=== PATIENT | female | born 1990 | race Caucasian/White ===

== ENCOUNTER 2016-06-19 19:36 | Emergency (ER) | payer OTHER ==
[2016-06-19 19:55] VITALS: BP 135/80
[2016-06-19] MEDS ORDERED: ONDANSETRON HCL/PF 2 MG/ML VIAL ONE (20:09)
[2016-06-19] MEDS ORDERED: ONDANSETRON HCL/PF 2 MG/ML VIAL IV ONE (20:15)
[2016-06-19] MEDS ORDERED: NORMAL SALINE 1,000 ML IV ONE (20:15)
--- NOTE | 2016-06-19 20:39 | ERNOTE ---
Headache ER HPI - General Presenting Symptoms: headache Time Seen by Provider: 06/19/16 20:39 Source: patient Exam Limitations: no limitations - Immun/Allergies/Home Medications Immunizations: IMMUNIZATION HX Immunizations Up to Date Yes History of Influenza Vaccine Yes Hx Pneumococcal Vaccination No Allergies/Adverse Reactions: Allergies morphine Allergy (Verified 06/19/16 19:55) Home Medications: HOME MEDICATIONS Citalopram Hydrobromide [Celexa] 20 mg PO DAILY 12/22/15 [Last Taken 12/21/15 21 :00] Vit#96/Ferrous Fum/FA [ S] 1 tab PO DAILY 12/22/15 [Last Taken 12/22/15 09:00] hydrOXYzine PAMOATE [Vistaril] 25 mg PO Q6H PRN 12/22/15 [Last Taken Unknown] Ibuprofen [Motrin] 800 mg PO Q6H PRN #0 tablet 12/23/15 [Last Taken 06/19/16 18: 00] - History of Present Illness Date (Duration): 06/19/16 Time (Timing): 20:46 Activity at onset: other - pain came on 2-3 hours ago. Patient not active at time of onset. Patient with long history of migrainous headaches. States is one of her painful headaches but not the worst of her life. She has nausea with emesis associated with the above. Headache localized to the left side of forehead and sabianism. Patient does have photophobia as well as phonophobia with the above. Patient 4 para 4013. Last menstrual period approximately 5 months ago as she is currently breast-feeding. Timing of Headache: gradual Context Headache: Present: other - headache came on insidiously similar to prior headaches she's had in the past. Quality: Present: pressure Severity Maximum: Present: moderate Severity-Currently: Present: moderate Headache frequency: Present: chronic headaches Modifying Factors - (Improves): Reports: rest Modifying Factors - (Worsens): Reports: exposure to light Associated Symptoms: Reports: nausea, vomiting Exacerbated by:: Reports: light, noise Prior Treament: Reports: similar symptoms before Review of Systems - Review of Systems Constitutional: Present: See HPI EYE: Present: see HPI ENT: Present: See HPI Respiratory: Present: no symptoms reported Cardiology: Present: no symptoms reported Gastrointestinal/Abdominal: Present: See HPI Genitourinary: Present: no symptoms reported Musculoskeletal: Present: neck pain - patient does have some mild associated upper cervical paravertebral muscle soreness. Skin: Present: no symptoms reported Neurological: Present: See HPI Endocrine: Present: no symptoms reported Hematologic/Lymphatic: Present: no symptoms reported Psych: Present: no symptoms reported - Patient's Past Medical History Patient History - Medical: Anxiety, Depression, Migraines Patient History - Cardiac/Respiratory: Asthma Patient History - Cancer: No Hx of Cancer Patient History - Surgical Procedures: Cholecystectomy Patient History - Other: None LMP (females 10-50): other - Social History Living Situations: home Abuse History: No History of abuse Psych History: Hx of Anxiety, Hx of Depression, Current tx/ever been on anti- depressants or anti-anxiety meds Smoking Status: Never smoker Alcohol Use: none Drug Use: none - Immunizations Immunizations Up to Date: Yes Hx Pneumococcal Vaccination: No History of Influenza Vaccine: Yes Physical Exam - Physical Exam General Appearance: Present: wd/wn, alert, mild distress Eye Exam: PERRL: bilateral, EOMI: bilateral Ears, Nose, Throat: Present: normal ENT inspection, H, normal pharynx Neck: Present: normal inspection, other - patient with mild tenderness localized to the upper cervical paravertebral muscles bilaterally. Patient with full range of motion. Negative Brudzinski and Kernig sign. Neck movement appropriate. Respiratory: Present: no respiratory distress, normal breath sounds, no accessory muscle use, chest nontender, lungs clear Cardiovascular/Chest: Present: regular rate, rhythm, no murmur, normal peripheral pulses Peripheral Pulses: N=norm/S=strong/W=weak/B=bound/A=absent: Carotid (R): Normal , Carotid (L): Normal, Dorsalis-pedis (R): Normal, Dorsalis-pedis (L): Normal Gastrointestinal/Abdominal: Present: normal bowel sounds, nontender, nondistended, soft, no organomegaly Back Exam: Present: normal inspection, normal range of motion, no CVA tenderness , no vertebral tenderness, other - please note results above regarding upper cervical paravertebral muscle soreness Extremity Exam: Present: normal inspection - which is mild in nature., non- tender, no edema, normal range of motion Neurological Exam: Present: alert, oriented, normal mood/affect, no motor/ sensory deficits, 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 Patient able to ambulate without difficulty with normal nerves, motor sensory and cerebellar testing. DTR: N=norm/NB=norm/brisk/A=abs/DD=dull/dimin/HC=hyperactive: Bicep (R): Normal , Bicep (L): Normal, Knee (R): Normal, Knee (L): Normal, Ankle (R): Normal, Ankle (L): Normal Skin Exam: Present: normal color, warm/dry Lymphatic Exam: Present: no adenopathy ED Progress - Date and Time Seen: Date and Time: 06/19/16 20:52 Patient given 1 L normal saline and 4 mg Zofran IV with improvement of migrainous headache from now to 10/15. We'll add Toradol 30 mg IV, Benadryl 50 mg IV. 06/19/16 21:34 Patient was marked symptomatic improvement after Benadryl and IV Toradol. Patient will be discharged to a quiet dark area. - Results and Orders Patient's Lab Results:: I have reviewed the patient's lab results. - Vital Signs Patient's Vital Signs:: I have reviewed the patient's vital signs. Vital Signs: Vital Signs 06/19/16 19:47 Temperature 36.2 C L Pulse Rate 99 Respiratory 18 Rate Blood Pressure 135/80 O2 Sat by Pulse 98 Oximetry - Progress/Reassessment Chief Complaint: Headache Departure Clinical Impression: Headache - Departure Disposition: Home self-care Condition: Good Instructions: Recurrent Migraine Headache, [id number] Additional Instructions: Recommend resting in a quiet dark area tonight. Follow-up either here or with primary provider on an as-needed basis for recurrent migraine headaches.
[2016-06-19] MEDS ORDERED: KETOROLAC TROMETHAMINE 30 MG/ML VIAL IV ONE (20:53)
[2016-06-19] MEDS ORDERED: diphenhydrAMINE HCL 50 MG/ML VIAL IV ONE (20:54)
[2016-06-19] MEDS ORDERED: diphenhydrAMINE HCL 50 MG/ML VIAL ONE (20:56)
[2016-06-19] MEDS ORDERED: KETOROLAC TROMETHAMINE 30 MG/ML VIAL ONE (20:56)
== END 2016-06-19 21:50 | disposition home or self-care (01) ==
LOC: ER 19:36
DX: R51 Headache (principal); F41.9 Anxiety disorder, unspecified; F32.9 Major depressive disorder, single episode, unspecified